=== PATIENT | female | born 1965 | race African-American/Black ===

== ENCOUNTER 2018-06-29 09:30 | Emergency (ER) | payer MEDICARE, MEDICAID ==
[~2018-06-29] VITALS: Ht 167.6 cm; Wt 78.0 kg
[2018-06-29 10:48] LABS: BASOPHILS % 1.3 % (0.0-2.0); EOSINOPHILS % 11.6 % (0.0-5.0); HEMATOCRIT. 39.6 % (36.0-48.0); HEMOGLOBIN. 13.1 g/dL (12.0-16.0); LYMPHOCYTES % 41.6 % (20.0-50.0); MEAN CORPUSCULAR HEMOGLOBIN 30.4 pg (28.0-32.0); MEAN CORPUSCULAR VOLUME 92.1 fL (81.0-99.0); MEAN PLATELET VOLUME 11.1 fl (7.4-10.4); MONOCYTES % 9.9 % (2.0-8.0); NEUTROPHILS % 35.6 % (40.0-76.0); PLATELET 137 x1000/uL (130-400)
[2018-06-29 10:52] LABS: CLARITY URINE CLEAR (CLEAR); COLOR URINE YELLOW (YELLOW); KETONES URINE NEGATIVE (NEGATIVE); LEUKOCYTE ESTERASE URINE NEGATIVE (NEGATIVE); NITRITE URINE NEGATIVE (NEGATIVE); OCCULT BLOOD URINE NEGATIVE (NEGATIVE); PH URINE 5.5 (4.5-8.0); PROTEIN URINE NEGATIVE (NEGATIVE); SPECIFIC GRAVITY URINE 1.011 (1.005-1.030); UROBILINOGEN URINE 0.2 E.U./dL (0.2-1.0)
[2018-06-29 11:33] LABS: CHLORIDE 104 mEq/L (98-107)
[2018-06-29 12:38] VITALS: BP 108/65
== END 2018-06-29 12:47 | disposition home or self-care (01) ==
LOC: ER 09:30
DX: R30.0 Dysuria (principal); N28.9 Disorder of kidney and ureter, unspecified; H91.3 Deaf nonspeaking, not elsewhere classified; R62.50 Unspecified lack of expected normal physiological development in childhood
CPT/HCPCS: 36415; 99283